=== PATIENT | male | born 1985 | race Two or more races ===

== ENCOUNTER 2019-06-01 07:24 | Day surgery (SDC) | payer OTHER ==
[~2019-06-01] VITALS: Ht 175.3 cm; Wt 78.5 kg
[~2019-06-01 07:24] MED LIST: SODIUM CHLORIDE 0.9% 1,000 ML IV ONE
[2019-06-01] MEDS ORDERED: BENZOCAINE 20% 50 MCG/SPRAY 57 GM TP ONE (07:25)
[2019-06-01] MEDS ORDERED: LIDOCAINE 2% 30 ML JELLY TP ONE (07:25)
[2019-06-01] MEDS ORDERED: ALBUTEROL SULFATE 2.5 MG/0.5 ML NEB SOLUTION NEB ONE (07:25)
[2019-06-01] MEDS ORDERED: MIDAZOLAM HCL 2 MG/2 ML VIAL ONE (07:36)
[2019-06-01] MEDS ORDERED: FentaNYL CITRATE-PF 100 MCG/2 ML VIAL ONE (07:36)
[2019-06-01] MEDS ORDERED: MAGN400T40 PO (08:02)
[2019-06-01] MEDS ORDERED: ATOR40TA28 PO (08:02)
[2019-06-01] MEDS ORDERED: INSNOV SQ (08:02)
[2019-06-01] MEDS ORDERED: METO50 PO (08:02)
[2019-06-01] MEDS ORDERED: ACYC200C PO (08:02)
[2019-06-01] MEDS ORDERED: ALPR0.255 PO (08:02)
[2019-06-01] MEDS ORDERED: APIX5TAB PO (08:02)
[2019-06-01] MEDS ORDERED: ESTR-95 PO (08:02)
[2019-06-01] MEDS ORDERED: BUPR100 PO (08:02)
[2019-06-01] MEDS ORDERED: MORP15TA70 PO (08:02)
[2019-06-01] MEDS ORDERED: GABA-533 PO (08:02)
[2019-06-01] MEDS ORDERED: BUPR75 PO (08:02)
[2019-06-01] MEDS ORDERED: OXYC5TAB3 PO (08:02)
[2019-06-01] MEDS ORDERED: ALBU8.5H8 IH (08:02)
[2019-06-01] MEDS ORDERED: LISI-660 PO (08:02)
[2019-06-01] MEDS ORDERED: RANI150T7 PO (08:02)
[2019-06-01] MEDS ORDERED: SODIUM CHLORIDE 0.9% 1,000 ML IV ONE (08:30)
[2019-06-01] MEDS ORDERED: MethylPREDNISolone SOD SUCC 125 MG/2 ML VIAL IVP ONE (09:00)
[2019-06-01] MEDS ORDERED: MethylPREDNISolone SOD SUCC 125 MG/2 ML VIAL ONE (09:22)
[2019-06-01] MEDS ORDERED: OXYGEN THERAPY IH SCH (20:00)
[2019-06-11] MEDS ORDERED: SODIUM CHLORIDE 0.9% 1,000 ML IV ONE (07:00)
== END 2019-06-01 10:15 | disposition home or self-care (01) ==
LOC: SURGERY 07:24
PROVIDERS: ATTEND Internal Medicine Critical Care Medicine
DX: J38.4 Edema of larynx (principal); B37.0 Candidal stomatitis; J45.909 Unspecified asthma, uncomplicated; J98.8 Other specified respiratory disorders; J98.09 Other diseases of bronchus, not elsewhere classified; I10 Essential (primary) hypertension; I25.2 Old myocardial infarction; I48.91 Unspecified atrial fibrillation; Z86.73 Personal history of transient ischemic attack (TIA), and cerebral infarction without residual deficits; Z79.899 Other long term (current) drug therapy; F17.210 Nicotine dependence, cigarettes, uncomplicated; Z72.89 Other problems related to lifestyle; Z95.810 Presence of automatic (implantable) cardiac defibrillator; Z94.81 Bone marrow transplant status; Z98.890 Other specified postprocedural states
CPT/HCPCS: 31623; 31624; 71045; 87015; 87070; 87101; 87205; 87206; 87220; 93005; J2250; J2930; J3010; J7030